=== PATIENT | male | born 1995 | race Caucasian/White ===

== ENCOUNTER 2017-04-04 13:37 | Emergency (ER) | payer OTHER ==
[~2017-04-04] VITALS: Ht 160 cm; Wt 70.0 kg
[~2017-04-04 13:37] MED LIST: ACET1TAB40 PO; BACTDS PO; CEPH-443 PO; CYCL-319 PO; IBUP-1542 PO
[2017-04-04 13:40] VITALS: Ht 160 cm; Wt 70.0 kg
[2017-04-04] MEDS ORDERED: HYDROmorphONE 1 MG/ML SYG IV STA ×2 (13:40→13:59)
[2017-04-04] MEDS ORDERED: SOD CHLORIDE 0.9% 1,000 ML IV STA (13:40)
[2017-04-04] MEDS ORDERED: ONDANSETRON 4 MG INJ IV STA (13:40)
[2017-04-04 13:57] LABS: ADD SCAN DIFF NO
[2017-04-04] MEDS ORDERED: DIPHTH/TET/ACEL PERTUSS (ADULT) 0.5 ML VIAL IM* ONE (14:00)
[2017-04-04] MEDS ORDERED: CEFAZOLIN 2 GM/50 ML (PMX) 50 ML IVPB ONE (14:00)
[2017-04-04 14:01] LABS: BASOPHIL # 0.1 10^3/ul (0.0-0.1); BASOPHILS % 0.6 % (0.0-2.0); EOSINOPHILS % 0.4 % (0.0-7.0); HEMATOCRIT 44.1 % (42.0-52.0); HEMOGLOBIN 15.2 g/dl (14.0-18.0); LYMPHOCYTES # 3.3 10^3/ul (0.8-2.9); LYMPHOCYTES % 33.2 % (15.0-51.0); MEAN CORPUSCULAR HEMOGLOBIN 31.1 pg (29.0-33.0); MEAN CORPUSCULAR HGB CONC 34.5 g/dl (32.0-37.0); MEAN CORPUSCULAR VOLUME 90.4 fl (82.0-101.0); MONOCYTE # 0.5 10^3/ul (0.3-0.9); MONOCYTES % 4.7 % (0.0-11.0); NEUTROPHIL # 6.1 10^3/ul (1.6-7.5); NEUTROPHILS % 60.8 % (39.0-77.0); PLATELET COUNT 379 10^3/UL (140-415); RED BLOOD COUNT 4.88 10^6/ul (4.70-6.10); RED CELL DISTRIBUTION WIDTH 11.6 % (11.5-14.5)
[2017-04-04 14:05] VITALS: BP 122/74; PULSE 70; RESP 18
[2017-04-04 14:16] LABS: INR 0.89; PT RATIO 0.9
[2017-04-04 14:17] LABS: PARTIAL THROMBOPLASTIN TIME 23.3 Sec (25.0-35.0)
[2017-04-04 14:23] LABS: ALBUMIN 4.8 g/dl (3.3-4.9); ALBUMIN/GLOBULIN RATIO 2.08; BILIRUBIN,INDIRECT 0.3 mg/dl (0-1.1); BILIRUBIN,TOTAL 0.3 mg/dl (0.2-1.3); CALCIUM 9.2 mg/dl (8.4-10.2); CREATININE 0.85 mg/dl (0.61-1.24); POTASSIUM 3.6 mmol/L (3.5-5.1); TOTAL PROTEIN 7.1 g/dl (6.1-8.1)
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
== END 2017-04-04 18:32 | disposition short-term general hospital (02) ==
LOC: E/R 13:37
DX: S71.102A Unspecified open wound, left thigh, initial encounter (principal); F17.210 Nicotine dependence, cigarettes, uncomplicated; M79.604 Pain in right leg; X94.0XXA Assault by shotgun, initial encounter; Z23 Encounter for immunization
CPT/HCPCS: 36415; 71010; 73550; 74000; 80053; 83690; 85025; 85610; 85730; 86850; 86900; 86901; 90471; 90715; 93005; 96374; 96375; 99291; J0690; J1170; J2405; J7030

== ENCOUNTER 2017-07-02 12:00 | Emergency (ER) | payer OTHER ==
[~2017-07-02] VITALS: Ht 157.5 cm; Wt 65.5 kg
[2017-07-02 12:07] VITALS: Ht 157.5 cm; Wt 65.5 kg
[2017-07-02] MEDS ORDERED: IBUPROFEN 600 MG TAB PO ONE (14:00)
--- NOTE | 2017-07-02 14:34 | RADRPT ---
PROCEDURE: US Lower extremity Venous. CLINICAL INDICATION: Right lower extremity pain and swelling TECHNIQUE: Multiple sonographic images of the right lower extremity deep venous system was obtaine d utilizing grayscale, color-flow, compressive sonography and doppler imaging with augmentation. Th e images were reviewed on a PACS workstation. COMPARISON: None. FINDINGS: There is normal compressibility and flow within the right common femoral, deep femoral, superficial femoral and popliteal veins. The deep veins in the calf were incompletely visualized. IMPRESSION: No sonographic evidence for deep venous thrombosis. RPTAT: QQ Physician Brian Date Time Electronically viewed and signed by Physician Brian on 07/02/2017 14:33 /
[2017-07-02] MEDS ORDERED: DOXY100T20 PO (14:55)
[2017-07-02] MEDS ORDERED: NAPR-260 PO (14:56)
[2017-07-02 15:18] VITALS: BP 119/67; PULSE 71; RESP 19; TEMP 98.2
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
== END 2017-07-02 15:19 | disposition home or self-care (01) ==
LOC: FTE 12:00
DX: L03.031 Cellulitis of right toe (principal); F17.210 Nicotine dependence, cigarettes, uncomplicated
CPT/HCPCS: 93971